=== PATIENT | male | born 1940 | race Caucasian/White ===

== ENCOUNTER → 2018-10-17 10:51 | Outpatient (CLI) | payer OTHER, MEDICARE ==
[2015-06-26 01:46] VITALS: BMI 26.1
[~2018-10-17 10:51] MED LIST: BAYER CHEWABLE81 MG PO; IBUPROFEN400 MG PO; LISINOPRIL10 MG PO; PLAVIX75 MG PO
== END | disposition home or self-care (01) ==
LOC: D.MRI 10:51
DX: M54.12 Radiculopathy, cervical region (principal); G95.9 Disease of spinal cord, unspecified